=== PATIENT | female | born 1945 | race Caucasian/White ===

== ENCOUNTER → 2018-06-08 | Outpatient (CLI) | payer MEDICARE, OTHER ==
[~2018-06-08] MED LIST: ALPR.25; Aspirin EC81 MG PO; COLE1 PO; Calcium Magnes1 EACH PO; DIGESTIVE PROB1 EACH PO; Daily Multivit1 EAC2 PO; ETOD400; ETOD400CR PO; FLUV20 PO; KRILL OIL500 MG PO; Keflex500 MG PO; METF500 PO; MINIVELLE1 EAC1 TD; OMEG1CAP30 PO; POLIDOCANOL INJ; RANI150EL; VALSARTAN-HCTZ1 EAC1 PO; VITAMIN D-32000 UNIT PO; [UNRECOGNIZED DRUG - OTHER] PO
[2018-06-10 15:07] LABS: HPV 16 Negative (Negative); HPV 18 Negative (Negative); HPV OTHER HR TYPES Negative (Negative)
== END | disposition home or self-care (01) ==
LOC: LAB 17:52 → LAB SHORT 17:52
PROVIDERS: Obstetrics & Gynecology Gynecology
DX: Z12.4 Encounter for screening for malignant neoplasm of cervix (principal)
CPT/HCPCS: 87624; G0123

== ENCOUNTER 2018-07-05 10:53 | Day surgery (SDC) | payer MEDICARE, OTHER ==
[~2018-07-05] VITALS: Ht 154.9 cm; Wt 74.8 kg
[~2018-07-05 10:53] MED LIST changes: +ACIDOPHILUS1 EAC2 PO; +ALLEGRA ALLERG180 MG PO; +ALPR.25 PO; +Align4 MG PO; +DIGESTIVE ADVA1 EAC1 PO; +Dicyclomine HCl10 MG PO; +HYDR-86 PO; +ONDA4ODT MM; +Omeprazole20 M1 PO; +VITAMIN C500 MG PO; +VITAMIN D32000 UNIT PO; +Xalatan2.5 ML BOTHEYES; +Zantac150 MG PO; +[UNRECOGNIZED DRUG - OTHER] PO; +[UNRECOGNIZED DRUG - OTHER] PO
== END 2018-07-05 13:02 | disposition home or self-care (01) ==
LOC: ORSCSDS 10:53
PROVIDERS: Surgery
PROC: 0DJD8ZZ Inspection of Lower Intestinal Tract, Via Natural or Artificial Opening Endoscopic (ICD-10-PCS; principal; 2018-07-05 12:15)
DX: R19.4 Change in bowel habit (principal); Z86.010 Personal history of colon polyps; K57.30 Diverticulosis of large intestine without perforation or abscess without bleeding; Z80.0 Family history of malignant neoplasm of digestive organs; F41.9 Anxiety disorder, unspecified; I10 Essential (primary) hypertension; E78.1 Pure hyperglyceridemia; Z79.899 Other long term (current) drug therapy
CPT/HCPCS: J7120

== ENCOUNTER → 2018-07-14 | Outpatient (CLI) | payer MEDICARE, OTHER ==
[2018-07-15 07:50] LABS: Adenovirus F 40/41 Not Detected (NOT DETECT); Astrovirus Not Detected (NOT DETECT); Campylobacter Sp Not Detected (NOT DETECT); Cryptosporidium Not Detected (NOT DETECT); Cyclospora Cayetanensis Not Detected (NOT DETECT); E. Coli O157 Not Detected (NOT DETECT); Entamoeba Histolytica Not Detected (NOT DETECT); Enteroaggregative E. coli-EAEC Not Detected (NOT DETECT); Enteropathogenic E. coli-EPEC Not Detected (NOT DETECT); Enterotoxigenic E. coli-ETEC Not Detected (NOT DETECT); Giardia Lamblia Not Detected (NOT DETECT); Norovirus GI/GII Not Detected (NOT DETECT); Plesiomonas Shigelloides Not Detected (NOT DETECT); Rotavirus A Not Detected (NOT DETECT); Salmonella Sp Not Detected (NOT DETECT); Sapovirus Not Detected (NOT DETECT); Shiga Toxin-prod E. coli-STEC Not Detected (NOT DETECT); Shigella/Enteroin E. coli-EIEC Not Detected (NOT DETECT); Vibrio Cholerae Not Detected (NOT DETECT); Vibrio Sp Not Detected (NOT DETECT); Yersinia Enterocolitica Not Detected (NOT DETECT)
== END | disposition home or self-care (01) ==
LOC: LAB 11:45 → LAB SHORT 11:45
DX: R19.7 Diarrhea, unspecified (principal)
CPT/HCPCS: 87507

== ENCOUNTER → 2018-08-20 | Outpatient (CLI) | payer MEDICARE, OTHER | END | disposition home or self-care (01) | LOC: LAB SHORT 13:43 → LAB 13:43 | DX: A04.72 Enterocolitis due to Clostridium difficile, not specified as recurrent (principal) | CPT/HCPCS: 87493 ==

== ENCOUNTER 2020-11-08 21:05 | Emergency (ER) | payer MEDICARE, OTHER ==
[~2020-11-08] VITALS: Ht 154.9 cm; Wt 77.1 kg
[2020-11-08] MEDS ORDERED: OLOPATADINE HCL5 ML UD (21:59)
== END 2020-11-08 22:15 | disposition home or self-care (01) ==
LOC: ER 21:05
DX: H57.89 Other specified disorders of eye and adnexa (principal); Z91.012 Allergy to eggs; Z91.011 Allergy to milk products; Z88.8 Allergy status to other drugs, medicaments and biological substances; Z91.018 Allergy to other foods; Z79.899 Other long term (current) drug therapy
CPT/HCPCS: 99283

== ENCOUNTER → 2021-12-31 | Outpatient (CLI) | payer MEDICARE, OTHER ==
[~2021-12-31] MED LIST changes: +OLOPATADINE HCL5 ML UD
== END | disposition home or self-care (01) ==
LOC: LAB SHORT 11:08 → LAB 11:08
DX: Z08 Encounter for follow-up examination after completed treatment for malignant neoplasm (principal); L08.9 Local infection of the skin and subcutaneous tissue, unspecified; L53.8 Other specified erythematous conditions; L57.8 Other skin changes due to chronic exposure to nonionizing radiation; R20.8 Other disturbances of skin sensation
CPT/HCPCS: 87070; 87077; 87186; 87205

== ENCOUNTER → 2022-04-08 | Outpatient (CLI) | payer MEDICARE, OTHER ==
[~2022-04-08] MED LIST changes: +AMOCLA875 PO; +SENNA LAXATIVE8.6 MG PO
[2022-04-08 17:39] LABS: Calcium, Urine 5.9 mg/dL (< 17.5); Calcium, Urine Calculation 103.3 mg/24hrs (42.0-353.0)
== END | disposition home or self-care (01) ==
LOC: LAB SHORT 10:45 → LAB 10:45 → LAB FUT 03-23 09:05
PROVIDERS: Internal Medicine
DX: E83.52 Hypercalcemia (principal)
CPT/HCPCS: 81050; 82340

== ENCOUNTER → 2022-05-04 | Outpatient (CLI) | payer MEDICARE, OTHER ==
[2022-05-07 13:11] LABS: M-SPIKE, % Not Observed % (Not Observed); PROTEIN,TOTAL,URINE 5.2 mg/dL (Not Estab.)
== END | disposition home or self-care (01) ==
LOC: LAB SHORT 15:08 → LAB 15:08 → EDSTATUS 04-16 09:35 → LAB FUT 04-16 09:35
PROVIDERS: Internal Medicine
DX: E85.81 Light chain (AL) amyloidosis (principal)
CPT/HCPCS: 84156; 84166

== ENCOUNTER → 2022-06-03 | Outpatient (CLI) | payer MEDICARE, OTHER | END | disposition home or self-care (01) | LOC: LAB SHORT 09:00 | DX: L08.9 Local infection of the skin and subcutaneous tissue, unspecified (principal); L03.011 Cellulitis of right finger; L03.012 Cellulitis of left finger; L53.8 Other specified erythematous conditions; R20.8 Other disturbances of skin sensation; L03.032 Cellulitis of left toe | CPT/HCPCS: 87070; 87077; 87186; 87205 ==

== ENCOUNTER → 2022-09-28 | Outpatient (CLI) | payer MEDICARE, OTHER | END | disposition home or self-care (01) | LOC: LAB SHORT 17:14 → LAB 17:14 | DX: N39.0 Urinary tract infection, site not specified (principal) | CPT/HCPCS: 87077; 87086; 87186 ==

== ENCOUNTER 2023-03-25 11:44 | Day surgery (SDC) | payer MEDICARE, OTHER ==
[~2023-03-25] VITALS: Ht 154.9 cm; Wt 76.4 kg
[~2023-03-25 11:44] MED LIST changes: +COLCHICINE0.6 MG; +COLESTID1 G1
--- NOTE | 2023-03-25 12:14 | NUR ---
03/25/23 1214 Dinorah Baron TETRACAINE TO THE LEFT EYE AT 1214 PLEDGET TO THE LEFT EYE AT 1215 BY [facility].WElbaN
[2023-03-25 13:27] VITALS: BP 112/74
== END 2023-03-25 13:43 | disposition home or self-care (01) ==
LOC: ORSCSDS 11:44
PROVIDERS: Ophthalmology
PROC: 08RK3JZ Replacement of Left Lens with Synthetic Substitute, Percutaneous Approach (ICD-10-PCS; principal; 2023-03-25 13:00)
PROC: 08933ZZ Drainage of Left Anterior Chamber, Percutaneous Approach (ICD-10-PCS; principal; 2023-03-25 13:00)
DX: H25.12 Age-related nuclear cataract, left eye (principal); Z96.1 Presence of intraocular lens; H40.1131 Primary open-angle glaucoma, bilateral, mild stage; I10 Essential (primary) hypertension; F41.9 Anxiety disorder, unspecified; Z79.899 Other long term (current) drug therapy
CPT/HCPCS: J2250; J3301; J7040; V2632

== ENCOUNTER → 2023-06-17 | Outpatient (CLI) | payer MEDICARE, OTHER ==
[2023-06-17 14:47] LABS: Source, Urine Clean Catch
[2023-06-17 17:06] LABS: Appearance, Urine Hazy (Clear); Blood, Urine 1+ (Neg); Color, Urine Yellow (P-Yellow); Glucose Qualitative, Urine Neg (Neg); Ketones, Urine Neg (Neg); Leukocyte Esterase, Urine Neg (Neg); Nitrite, Urine Neg (Neg); Protein, Urine 1+ (Neg); Specific Gravity, Urine 1.015 (1.003-1.022); Urobilinogen, Urine NORM (Normal)
[2023-06-17 17:13] LABS: Bilirubin, Urine 3+ (Neg)
[2023-06-17 17:15] LABS: Bacteria Many /hpf; Hyaline Casts 0-2 /lpf (0-2); Squamous Epithelial Cells Many /hpf (Few); Yeast/Fungi Urine Few /hpf
== END ==
LOC: LAB SHORT 14:45 → LAB 14:45 → LAB FUT 06-06 18:10
PROVIDERS: Internal Medicine
DX: N39.0 Urinary tract infection, site not specified (principal)
CPT/HCPCS: 81001; 87086

== ENCOUNTER → 2023-06-28 | Outpatient (CLI) | payer MEDICARE, OTHER ==
[2023-06-28 16:06] LABS: Blood, Urine Neg (Neg); Glucose Qualitative, Urine Neg (Neg); Ketones, Urine Neg (Neg); Leukocyte Esterase, Urine Neg (Neg); Nitrite, Urine Neg (Neg); Protein, Urine Neg (Neg); Urobilinogen, Urine NORM (Normal)
[2023-06-28 16:32] LABS: Bilirubin, Urine 2+ (Neg); Color, Urine Yellow (P-Yellow)
[2023-06-28 16:33] LABS: Appearance, Urine Hazy (Clear)
[2023-06-28 16:34] LABS: Bacteria Few /hpf; Hyaline Casts 0-2 /lpf (0-2); Red Blood Cells, Urine 0-2 /hpf (0-2); Squamous Epithelial Cells Few /hpf (Few); White Blood Cells, Urine 0-2 /hpf (0-5); Yeast/Fungi Urine Rare /hpf
== END | disposition home or self-care (01) ==
LOC: LAB 09:00 → LAB SHORT 09:00 → LAB FUT 06-22 15:35
PROVIDERS: Internal Medicine
DX: R82.90 Unspecified abnormal findings in urine (principal)
CPT/HCPCS: 81001

== ENCOUNTER 2023-10-17 15:21 | Emergency (ER) | payer MEDICARE, OTHER ==
[~2023-10-17] VITALS: Ht 154.9 cm; Wt 77.1 kg
[~2023-10-17 15:21] MED LIST changes: -COLCHICINE0.6 MG; +COLCHICINE0.6 MG PO; -COLESTID1 G1; +COLESTID1 G1 PO; +DIOVAN HCT 1601 EAC1 PO; +ESCI10 PO; +ETOD400 PO; +SKYRIZI150 MG/1 M
[2023-10-17 15:30] VITALS: BP 137/72
[2023-10-17 16:16] LABS: Influenza A, PCR NEGATIVE (NEGATIVE); Influenza B, PCR NEGATIVE (NEGATIVE); Resp Syncytial Virus, PCR NEGATIVE (NEGATIVE); SARS-Cov-2 (COVID-19) PCR, MMC NEGATIVE (NEGATIVE)
[2023-10-17] MEDS ORDERED: BENZ100A PO (17:29)
== END 2023-10-17 17:30 | disposition home or self-care (01) ==
LOC: ER 15:21
PROVIDERS: Student in an Organized Health Care Education/Training Program
DX: J06.0 Acute laryngopharyngitis (principal); B97.89 Other viral agents as the cause of diseases classified elsewhere; Z91.012 Allergy to eggs; Z88.8 Allergy status to other drugs, medicaments and biological substances; Z91.011 Allergy to milk products; Z79.899 Other long term (current) drug therapy
CPT/HCPCS: 0241U; 71046; 99283-25

== ENCOUNTER 2024-05-30 15:32 | Emergency (ER) | payer MEDICARE, OTHER ==
[~2024-05-30] VITALS: Ht 154.9 cm; Wt 74.8 kg
[~2024-05-30 15:32] MED LIST changes: +BENZ100A PO; +CLIMARA1 EACH
[2024-05-30 15:44] VITALS: BP 140/80
[2024-05-30] MEDS ORDERED: IBUP600 PO (16:33)
== END 2024-05-30 16:47 | disposition home or self-care (01) ==
LOC: ER 15:32
DX: J06.9 Acute upper respiratory infection, unspecified (principal); Z79.899 Other long term (current) drug therapy; Z91.012 Allergy to eggs; Z91.011 Allergy to milk products; Z88.8 Allergy status to other drugs, medicaments and biological substances
CPT/HCPCS: 99283

== ENCOUNTER → 2025-01-09 | Outpatient (CLI) | payer MEDICARE, OTHER ==
[~2025-01-09] MED LIST changes: +IBUP600 PO
[2025-01-09 15:03] LABS: Source, Urine Clean Catch
[2025-01-09 17:47] LABS: Bilirubin, Urine Neg (Neg); Color, Urine Yellow (P-Yellow); Glucose Qualitative, Urine Neg (Neg); Ketones, Urine Neg (Neg); Leukocyte Esterase, Urine Neg (Neg); Protein, Urine Neg (Neg); Specific Gravity, Urine 1.020 (1.003-1.022); Urobilinogen, Urine NORM (Normal)
[2025-01-09 18:15] LABS: Creatinine, Urine Random 69.00 mg/dL (27.00-270.00)
[2025-01-09 18:26] LABS: Microalb/Creat Ratio UR, Rand Unable to Calculate mg/g (0.000-30.000); Microalbumin, Random Urine <5.000 mg/L (0.000-20.000)
== END | disposition home or self-care (01) ==
LOC: LAB SHORT 15:01 → LAB 15:01 → LAB FUT 01-09 13:50
PROVIDERS: Internal Medicine
DX: N18.31 Chronic kidney disease, stage 3a (principal); N39.0 Urinary tract infection, site not specified
CPT/HCPCS: 81003; 82043; 82570